=== PATIENT | male | born 1970 | race Asian ===

== ENCOUNTER 2018-05-02 11:54 | Outpatient (CLI) | payer BC | END 2018-05-02 11:55 | disposition home or self-care (01) | LOC: BICRAD 11:54 | PROVIDERS: ATTEND Family Medicine | DX: J40 Bronchitis, not specified as acute or chronic (principal) | CPT/HCPCS: 36415; 71046; 80053; 80061; 81001; 84443; 85025 ==

== ENCOUNTER 2019-05-23 12:14 | Outpatient (CLI) | payer BC ==
--- NOTE | 2019-05-23 13:22 | RAD ---
LUMBAR SPINE RADIOGRAPHS TWO VIEWS: Date: 05-23-19 Provided Clinical History: Back pain status post injury. FINDINGS: Age indeterminate superior endplate compression deformity L2. Vertebral body heights appear otherwise preserved. Mild multilevel lower lumbar disc and facet degenerative changes are seen. Pedicles appea r intact. SI joints appear symmetric. IMPRESSION: Age indeterminate superior endplate L2 compression deformity. POS: [facility]
== END 2019-05-23 12:15 | disposition home or self-care (01) ==
LOC: BICRAD 12:14
PROVIDERS: ATTEND Family Medicine
DX: S30.0XXA Contusion of lower back and pelvis, initial encounter (principal)
CPT/HCPCS: 72100